=== PATIENT | female | born 1950 | race Caucasian/White ===

== ENCOUNTER 2024-11-24 00:29 | Inpatient (IN) | payer MEDICARE, OTHER, SELFPAY ==
[2024-11-23 20:28] VITALS: BP 173/90
[2024-11-23 20:49] LABS: Hematocrit 33.4 % (37.0-47.0); Hemoglobin 11.1 g/dL (12.0-16.0); Mean Corp Hgb Conc. 33.2 g/dL (33.0-37.0); Mean Corpuscular Volume 90.3 fL (81.0-99.0); Nucleated Red Blood Cells % 0 %; Platelet Count 253 10^3/uL (130-400); Red Cell Dist. Width 15.1 % (11.5-14.5)
[2024-11-23 21:07] LABS: ALT (SGPT) 25 U/L (0-35); AST (SGOT) 29 U/L (14-36); Albumin 5.2 g/dl (3.5-5.0); Alkaline Phosphatase 55 U/L (38-126); Blood Urea Nitrogen 26 mg/dl (7-17); Calcium 10.5 mg/dl (8.4-10.2); Carbon Dioxide 25 mmol/L (22-30); Chloride 106 mmol/L (98-107); Glucose 104 mg/dl (70-99); Lipase 62 U/L (23-300); Potassium 4.9 mmol/L (3.5-5.1); Sodium 140 mmol/L (135-145); Total Protein 8.2 g/dl (6.3-8.2); eGFR > 60.00
--- NOTE | 2024-11-23 21:14 | ED.GENMED ---
History of Present Illness
General
Chief Complaint: Abdominal Pain
Source: patient
Exam Limitations: none
Time Seen by Provider: 11/23/24 21:06
Nursing documentation reviewed up to this point in time: agreed with
History of Present Illness
History of Present Illness:
Note:
CHIEF COMPLAINT(S)
Pelvic pain.
HISTORY OF PRESENT ILLNESS
The patient is a 74-year-old female with pmh of htn, hlp, diabetes, who presented with a complaint of pelvic pain that began at approximately 6:00 PM. The pain is described as sharp and expanding, with no previous episodes reported. The patient also
experienced vomiting but denied any fever at home. The pain does not radiate to the upper abdomen and worsens significantly with movement, causing widespread discomfort. No urinary discomfort is reported. Upon examination, there is a noticeable
swelling described as 'almost like an apple' in the pelvic area, which is very firm to touch. The patient has not experienced similar pain before and does not report any recent surgeries in the abdomen. There was an episode of vomiting at home.
PHYSICAL EXAM
General: Patient appears in discomfort.
Skin: Warm, dry.
Head: Normocephalic, atraumatic.
Neck: Supple, trachea midline.
Eye, Ears, Nose, Mouth, and Throat: Oral mucosa moist.
Cardiovascular: Normal peripheral perfusion, no edema.
Respiratory: Respirations are non-labored.
Gastrointestinal: Notable for significant pelvic tenderness and firmness in the right, resembling a mass. Diffuse abdominal tenderness with guarding.
PLAN
- Administer pain medication via intravenous route.
- Order a computed tomography (CT) scan of the pelvis to further investigate the nature and cause of the mass.
- Initiate intravenous access for medication administration.
- Reassess the patient after medication administration to evaluate pain relief and further symptomatology.
DIFFERENTIAL DIAGNOSIS
The Differential Diagnosis includes, in no particular order and is not limited to:
1. Ovarian cyst
2. Pelvic abscess
3. Diverticulitis
4. Hernia
5. Malignancy
6. Constipation with fecal impaction
7. Bowel obstruction
8. Urinary retention
9. Bladder mass or tumor
10. Gastrointestinal perforation.
CHART REVIEW
Reviewed discharge summary from 08/03/22
MDM/DISPOSITION
The patient is a 74-year-old female with pmh of htn, hlp, diabetes, who presented with a complaint of pelvic pain that began at approximately 6:00 PM. The pain is described as sharp and expanding, with no previous episodes reported. CT scan reveals
inguinal hernia with small bowel obstruction. Hernia was reduced in the ER. Patient clinically improving. Will admit for serial abdominal exams and surgical consultation. ED attending aware.
Past History
Past History
ED Past Medical History: HTN, Hypercholesterolemia, IDDM and Hypothyroidism
ED Past Surgical History: Gynecological (Hysterectomy), Orthopedic (Left total knee replacement) and Other (Thyroidectomy)
Social History
Tobacco: Non-smoker
Alcohol: None
Living: with family
Employment: Retired
Family History
Family History: Other (Noncontributory)
Review of Systems
Review of Systems
All Other Systems: ROS reviewed and negative except as documented in HPI and ROS
Phy Exam
Physical Exam
Physical Exam:
see hpi
Course
Orders/Labs/Results
Orders:
Orders
11/23/24 20:42
Complete Blood Count/With Diff Urgent
Comprehensive Metabolic Panel Urgent
Lipase Urgent
11/23/24 21:11
Cardiac Monitoring- Treatment ONCE
0.9% Sodium Chloride 250 ml [Nss] 250 ml IV BOLUS
Morphine Sulfate 4 mg IV NOW STA
Ondansetron Injectable [Zofran] 4 mg IV NOW STA
11/23/24 21:12
CT Abd/pelvis W Iv Cont Urgent
Comment:
Reason For Exam: diffuse abdominal pain, pelvic pain
11/23/24 21:44
Urinalysis Reflex To Culture Urgent
Date Specimen was Collected: 11/23/24
Time Specimen was Collected: 21:43
Urine Microscopic Reflex Cult Urgent
11/23/24 21:50
Acetaminophen [Tylenol] 1,000 mg PO NOW STA
11/23/24 23:26
Lactic Acid Urgent
11/24/24 00:17
Admit/Transfer Patient As Directed
Co-Sign Provider:
Level of Care: Inpatient admission
Assign to:: Medical/Surgical
Physician / Group: Mariusz
Diagnosis: Inguinal Hernia, SBO
Reason for Hospitalization: Inguinal Hernia, SBO
Expected length of stay greater than two midnights?: Yes
ELOS- Estimated Length of Stay in days: 2
I certify the patient meets the requirements for IP care: Yes
PRN Pain Medication Management As Directed
May give lesser potent ordered pain med per pt: Yes
preference::
Protocol:: Medication orders for pain may be administered in a
manner that supports deferring to patient preference
when the pt is:
- Requesting an ordered lesser potent pain medication.
Least to most potent pain medications are defined
as: acetaminophen < NSAID < tramadol < opioids
(morphine, oxycodone, hydromorphone).
- Requesting a lesser dose of the same medication IF
ORDERED.
- Requesting a less intrusive route of administration
if both routes are prescribed by the provider (PO <
IV).
11/24/24 00:18
Code Status As Directed
Resuscitation Status: Full Code
11/24/24 01:58
0.9% Sodium Chloride 1000 ml [Nss] 1,000 ml IV 80 mls/hr
Acetaminophen [Tylenol] 650 mg PO Q4HPRN PRN
Dextrose 50%-Water [Dextrose 50% Syringe] 12.5 grams IV [id number] PRN
Glucagon [GlucaGen] 1 mg IM PRN PRN
HYDROmorphone [Dilaudid] 0.5 mg IV Q4HPRN PRN
Ondansetron Injectable [Zofran] 4 mg IV Q6HPRN PRN
11/24/24 01:58
SURGICAL CONSULT Routine
Consulting Provider: Gonzalo Ding
Was physician already notified: Yes
Reason for consult: Inguinal Hernia, SBO
Activity As Directed
Activity Level: Ambulate
With Assistance
Bedside Glucose Monitoring As Directed
Frequency: AC&HS
Additional Instructions:: Change to q6h if pt on TPN, tube feeding or not eating
I/O [Intake/ Output] As Directed
Frequency: Per unit guidelines
Pneumatic Compression Sleeves As Directed
Type: Knee high
Vital Signs As Directed
Frequency: Per unit guidelines
Oxygen Therapy [O2 Therapy] [RESP] Routine
Titrate/Wean O2 to maintain O2 sat greater than (%): 94
DX Deep Vein Thrombosis Video Routine
11/24/24 Breakfast
NPO
Allow oral meds: Yes
Allow clear liquids: Sips of Clears
Levothyroxine [Synthroid] 125 mcg PO DAILY @ 0600
11/24/24 06:55
Complete Blood Count/No Diff IN AM
Glycohemoglobin (HgbA1c) IN AM
11/24/24 07:30
Insulin Aspart Corrective Low [Novolog Flexpen-Low Resistance] See Protocol SC AC
11/24/24 08:00
Amlodipine [Norvasc] 10 mg PO DAILY
Aspirin Low Dose EC [Aspir Low (Enteric Coated)] 81 mg PO DAILY
Atorvastatin [Lipitor] 40 mg PO DAILY
Dapagliflozin [Farxiga] 10 mg PO DAILY
Labetalol [Trandate] 200 mg PO BID
Pantoprazole [Protonix IV] 40 mg IV DAILY
Valsartan [Diovan] 320 mg PO DAILY
11/24/24 18:00
insulin glargine 10 unit SC QPM
Abnormal Lab Results
11/23/24 11/23/24
20:42 21:44
RBC 3.70 L 10^6/uL
(4.20-5.40)
Hgb 11.1 L g/dL
(12.0-16.0)
Hct 33.4 L %
(37.0-47.0)
RDW 15.1 H %
(11.5-14.5)
MPV 10.8 H fL
(7.4-10.4)
BUN 26 H mg/dl
(7-17)
Glucose 104 H mg/dl
(70-99)
Calcium 10.5 H mg/dl
(8.4-10.2)
Albumin 5.2 H g/dl
(3.5-5.0)
Urine Glucose 4+ A
(Negative)
Urine Albumin (Reflex) 1+ A
(Neg - Trace)
11/23/24 20:42
11/23/24 20:42
Vital Signs
Initial and Last Documented VS:
Initial Vital Signs
Temp Pulse Resp BP Pulse Ox
98.1 F 65 18 173/90 99
11/23/24 20:28 11/23/24 20:28 11/23/24 20:28 11/23/24 20:28 11/23/24 20:28
Last Documented Vital Signs
Temp Pulse Resp BP Pulse Ox
98.7 F 83 16 144/75 97
11/24/24 07:30 11/24/24 09:17 11/24/24 07:30 11/24/24 09:17 11/24/24 10:53
*Pulse Oximetry
SaO2: 99
Oxygen Mode of Delivery: Room air
Patient hypoxic: no
*Critical Care Note
Total Time (30-74mins, 75-104mins- exclusive of procedures): Not Applicable
ED Attending Note
-
Portions of this chart may have been created with voice recognition software.� Occasional wrong word or��sound alike� substitutions may have occurred due to the inherent limitations of voice recognition software.
Discharge Plan
Departure
Patient Disposition: Admit
Date of Disposition: 11/23/24
Time of Disposition: 23:37
Admit to: Med/Surg
Presentation/result/management discussed w/ accepting MD/DO: Hospitalist
Patient with high blood pressure during this ER visit?: Yes
Condition: Fair
Discharge Problem:
Small bowel obstruction, Right inguinal hernia
Interventions
Interventions:
*Risk Screen - Suicide Last Done: 11/24/24 02:22
*General Assessment Last Done: 11/23/24 21:38
*Neglect/Abuse Screening Last Done: 11/23/24 20:28
*ED- Fall Risk Assessment Last Done: 11/23/24 21:38
*ED COVID-19 Vaccine History Last Done: 11/23/24 21:38
*Nursing Disposition Last Done: 11/24/24 01:37
TW-Cmluar-Zflbvrrtpo Assessment Last Done: 11/23/24 21:38
Discharge Date and Time
Discharge Date/Time: 11/24/24 01:50
[2024-11-23] MEDS: NSS 250 IV (21:25)
[2024-11-23] MEDS: MORPHINE SULFATE 4 MG IV (21:27)
[2024-11-23] MEDS: ZOFRAN 4 MG IV (21:27)
[2024-11-23 21:30] VITALS: BMI 32.0
[2024-11-23 21:37] VITALS: BP 170/84
[2024-11-23 21:51] LABS: Urine Character Clear (Clear)
[2024-11-23] MEDS: TYLENOL 1000 MG PO (21:57)
[2024-11-23 22:00] VITALS: BP 150/73
[2024-11-23 22:02] LABS: Urine Red Blood Cell None Seen /HPF (0-2); Urine White Cell 0-2 /HPF (0-5)
[2024-11-23 23:29] VITALS: BP 135/68
[2024-11-24] VITALS (15 sets, daily range): BP systolic 110–151; BP diastolic 33–79; BMI 33.2
--- NOTE | 2024-11-24 00:21 | HPS.HSE ---
Family Physician
-
Family Physician: Stephan Weston
Chief Complaint
-
Abd Pain
History of Present Illness
Patient is a 74y F with PMH significant for hypertension, DM-II and hypothyroidism who presents to ED complaining of abdominal pain with N/V. History obtained from patient and family with daughter serving as site interpreter as well. Patient was
feeling very well until this evening around 6 PM. She developed RLQ / R groin pain at that time accompanied by a large / painful 'lump' in the R groin. Her pain steadily increased over time and she developed nausea with a few episodes of
non-bloody emesis. With persistent symptoms patient presented to the ED for further evaluation and treatment.
In the ED, patient was noted to have R inguinal hernia on CT with associated SBO. This was successfully reduced following CT imaging and patient reports significant improvement in her symptoms.
She denies any prior / similar episodes.
Medical History
Past Medical History
Past Medical History: Reports Other
Additional Past Medical History:
DM-II
Thyroid Cancer s/p Thyroidectomy
Hypothyroidism
Hypertension
Past Surgical History: Reports Other
Additional Past Surgical History:
SJ
Left TKA
Thyroidectomy
Social History
Tobacco: Non-smoker
Alcohol: None
Drug: None
Living: With Family
Family History
Family History: Not pertinent
Allergies / Home Medications
Allergies reflects when Allergies were last updated in [facility].
Home Medications with original date entered in [facility]
Allergy/Medication List:
Allergies
Allergy/AdvReac Type Severity Reaction Status Date / Time
No Known Allergies Allergy Verified 07/23/22 21:51
Home Medications
aspirin 81 mg capsule 81 mg PO DAILY Blood clot prevention/tx 07/23/22
atorvastatin 40 mg tablet 40 mg PO DAILY High cholesterol 07/23/22
insulin glargine 100 unit/mL subcutaneous cartridge 16 unit SC QPM Diabetes 07/23/22
labetalol 200 mg tablet 200 mg PO BID Blood pressure 07/23/22
valsartan 320 mg tablet 320 mg PO DAILY Blood pressure 07/23/22
metformin 1,000 mg tablet 1,000 mg PO BID Diabetes #0 tabs 08/03/22
amlodipine 10 mg tablet 10 mg PO DAILY 11/24/24
clonidine HCl 0.1 mg tablet 0.1 mg PO DAILYPRN PRN High BP 11/24/24
cyanocobalamin (vitamin B-12) 1,000 mcg tablet 1,000 mcg PO BID 11/24/24
empagliflozin 25 mg tablet (Jardiance) 25 mg PO DAILY 11/24/24
insulin aspart U-100 100 unit/mL (3 mL) subcutaneous pen 1 sliding scale dose SC AC 11/24/24
levothyroxine 125 mcg tablet 125 mcg PO DAILY 11/24/24
Review of Systems
-
History Source: Patient and Family
A 12 point ROS was completed and negative except as noted: Yes
Constitutional: Denies Fever or Chills
Respiratory: Denies Cough or Trouble Breathing
Cardiac: Denies Chest Pain or Palpitations
Abdomen/GI: Reports Abdominal Pain, Nausea and Vomiting; Denies Diarrhea, Constipated, Bloody Stools or Black Stools
: Denies Dysuria or Frequency
Musculoskeletal: Denies Joint Pain or Edema
Neurological: Denies Dizzy or Headache
Physical Exam
Vital Signs
Vital Signs
Temp Pulse Resp BP Pulse Ox
98.1 F 68 18 170/84 97
11/23/24 20:28 11/23/24 21:37 11/23/24 21:37 11/23/24 21:37 11/23/24 21:37
Physical Exam
General: Other (74y F in no acute distress.)
HEENT: Moist mucous membranes and PERRLA
Respiratory: Clear; No Wheezes, Rales or Rhonchi
Cardiac: S1/S2 and Regular Rhythm; No Murmur
GI: Soft, Non Tender, Non Distended, Normal Bowel Sounds and Other (No bulging hernia appreciable at present. Scattered ecchymoses from insulin injections.)
Musculoskeletal: No Clubbing, No Cyanosis and No Edema
Neuro: AO x 3
Laboratory Results
-
11/23/24 20:42
11/23/24 20:42
Laboratory Results
Lactic Acid 1.3 mmol/L (0.7-2.0) 11/23/24 23:26
Total Bilirubin 0.4 mg/dl (0.2-1.3) 11/23/24 20:42
AST 29 U/L (14-36) 11/23/24 20:42
ALT 25 U/L (0-35) 11/23/24 20:42
Alkaline Phosphatase 55 U/L (38-126) 11/23/24 20:42
Lipase 62 U/L (23-300) 11/23/24 20:42
Impression/Plan
-
A/P: Patient is a 74y F with PMH significant for hypertension and DM-II who presents to ED complaning of abdominal pain and N/V.
Inguinal Hernia
SBO secondary to the above
- Admit for further evaluation and treatment.
- Hernia reduced at the bedside with improvement in symptoms.
- Follow for any new / recurrent symptoms.
- Pain control, antiemetics, IVFs, etc.
- Surgery evaluation in the AM for possible repair.
Benign Hypertension
- Stable on multidrug regimen.
- Continue usual medications with holding parameters.
DM-II
- Stable. Continue basal insulin at decreased dose while NPO.
- SSI coverage as needed.
- Update A1C.
Hypothyroidism
History of Thyroid Cancer
- Stable. Continue current T4 supplementation.
DVT Prophylaxis: SCDs
Code Status: Full
[2024-11-24] MEDS: NSS 1000 IV ×2 (02:41→17:56)
[2024-11-24] MEDS: SYNTHROID 125 MCG PO (05:59)
[2024-11-24 07:34] LABS: Hematocrit 31.8 % (37.0-47.0); Hemoglobin 10.5 g/dL (12.0-16.0); Mean Corp Hgb Conc. 33.0 g/dL (33.0-37.0); Mean Corpuscular Volume 89.6 fL (81.0-99.0); Platelet Count 231 10^3/uL (130-400); Red Cell Dist. Width 15.1 % (11.5-14.5)
--- NOTE | 2024-11-24 07:43 | W.SUR.PREOP ---
Pre-Operative Surgical Note
-
I have examined this patient prior to the performance of the scheduled procedure.
The patient's condition is unchanged from the time of the current History and
Physical and the patient is able to undergo the scheduled procedure.
[2024-11-24] MEDS: DIOVAN 320 MG PO (09:01)
[2024-11-24] MEDS: TRANDATE 200 MG PO ×2 (09:01→21:05)
[2024-11-24] MEDS: FARXIGA 10 MG PO (09:01)
[2024-11-24] MEDS: ASPIR LOW (ENTERIC COATED) 81 MG PO (09:02)
[2024-11-24] MEDS: LIPITOR 40 MG PO (09:02)
[2024-11-24 09:03] LABS: Glycohemoglobin (HgbA1c) 7.1 % (4.0-5.6)
[2024-11-24] MEDS: NSS (PRESERVATIVE FREE) 10 ML IV (09:03)
[2024-11-24] MEDS: PROTONIX IV 40 MG IV (09:03)
[2024-11-24 09:11] LABS: Glucose - Point of Care 145 mg/dl (70-99)
[2024-11-24] MEDS: NOVOLOG FLEXPEN-LOW RESISTANCE SC ×2 (09:15→11:30)
[2024-11-24] MEDS: NORVASC 10 MG PO (09:17)
[2024-11-24 10:09] LABS: Blood Urea Nitrogen 20 mg/dl (7-17); Calcium 9.0 mg/dl (8.4-10.2); Carbon Dioxide 25 mmol/L (22-30); Chloride 106 mmol/L (98-107); Estimated Creatinine Clearance 69 ml/min; Glucose 144 mg/dl (70-99); Potassium 4.7 mmol/L (3.5-5.1); Sodium 139 mmol/L (135-145); eGFR > 60.00
--- NOTE | 2024-11-24 10:20 | CON.GS ---
Addendum entered and electronically signed by Jude Bailey MD 11/24/24 12:35:
I saw and examined the patient independently.
The Financial Services Representative's note was reviewed and I agree with the note, assessment and plan except where noted below.
Comment: This is a 74-year-old female who presented last night with abdominal pain nausea and vomiting found to have a incarcerated right inguinal hernia on CT scan which was reduced successfully. She did note similar pain over the past month. She
was counseled on repair today which she obliged.
Will plan for robotic diagnostic laparoscopy followed by a right possible left inguinal hernia repair with mesh.
N.p.o., IV fluids, IV antibiotics ordered on-call to the OR.
Dispo pending clinical course. Possible home today.
Risks/Benefits/Alternatives, expected postoperative course and possible complications (bleeding, infection, injury to surrounding structures, acute/chronic pain) discussed at length. Patient wishes to proceed with surgery. All questions answered.
Consent obtained.
I spent 75 minutes in total for the care of this patient today including direct patient care and counseling, reviewing labs, imaging, coordination of care, as well as documentation.
Original Note:
Consultation
-
Date/Time Consultation Performed: 11/24/24 0830
Medical History
-
Chief Complaint: abdominal pain
History of Present Illness:
Ms Rich is a 74 yo Burkinan speaking female (daughter Anne Marie acting as pt's interpreter for the deaf per her request) with a h/o SJ, DM, thyroid ca with thyroidectomy and htn who presented through the ED with nausea and vomiting with abdominal pain last
night. She was noted to have a right inguinal hernia which was tender that was able to be reduced in the ED. She notes that she has noticed a bulging there with intermittent discomfort for several months and has followed with her PCP but not yet had
surgical evaluation. Over the past few days, she was bloated and constipated and did strain to pass a BM. Around 6pm, she noted increasing pain to her right groin with increased size of the hernia and developed nausea and vomiting causing her to
present to the ED for evaluation. The hernia itself is currently soft and reduced with no tenderness. She denies active nausea and vomiting.
Past Medical History
Past Medical History: Cancer (thyroid s/p surgery) and NIDDM
Past Surgical History: Gynecological (SJ ), Orthopedic (left TKA) and Other (thyroidectomy)
Social History
Tobacco: Non-Smoker
Alcohol: None
Family History
Family History: Reviewed & Not Pertinent
Allergies / Home Medications
Allergy/AdvReac Type Severity Reaction Status Date / Time
No Known Allergies Allergy Verified 07/23/22 21:51
�Medication �Instructions �Recorded �Confirmed �Type
aspirin 81 mg capsule 81 mg PO DAILY Blood clot 07/23/22 11/24/24 History
prevention/tx
atorvastatin 40 mg tablet 40 mg PO DAILY High cholesterol 07/23/22 11/24/24 History
insulin glargine 100 unit/mL 16 unit SC QPM Diabetes 07/23/22 11/24/24 History
subcutaneous cartridge
labetalol 200 mg tablet 200 mg PO BID Blood pressure 07/23/22 11/24/24 History
valsartan 320 mg tablet 320 mg PO DAILY Blood pressure 07/23/22 11/24/24 History
metformin 1,000 mg tablet 1,000 mg PO BID Diabetes #0 tabs 08/03/22 11/24/24 Rx
amlodipine 10 mg tablet 10 mg PO DAILY 11/24/24 11/24/24 History
clonidine HCl 0.1 mg tablet 0.1 mg PO DAILYPRN PRN High BP 11/24/24 11/24/24 History
cyanocobalamin (vitamin B-12) 1,000 mcg PO BID 11/24/24 11/24/24 History
1,000 mcg tablet
empagliflozin 25 mg tablet 25 mg PO DAILY 11/24/24 11/24/24 History
(Jardiance)
insulin aspart U-100 100 unit/mL 1 sliding scale dose SC AC 11/24/24 11/24/24 History
(3 mL) subcutaneous pen
levothyroxine 125 mcg tablet 125 mcg PO DAILY 11/24/24 11/24/24 History
Review of Systems
-
History Source: Patient and Family
All other systems: Negative unless noted
A 10 point review of systems was completed, and was negative except as per HPI.
Physical Exam
Vital Signs
Temp Pulse Resp BP Pulse Ox
98.7 F 83 16 144/75 97
11/24/24 07:30 11/24/24 09:17 11/24/24 07:30 11/24/24 09:17 11/24/24 07:30
11/23/24 11/24/24 11/25/24
06:59 06:59 06:59
Actual Weight 82.355 kg
Body Mass Index (BMI) 33.2
Lab Results
11/24/24 06:55
11/24/24 09:40
WBC 6.8 10^3/uL (4.8-10.8) 11/24/24 06:55
Hgb 10.5 g/dL (12.0-16.0) L 11/24/24 06:55
Hct 31.8 % (37.0-47.0) L 11/24/24 06:55
Plt Count 231 10^3/uL (130-400) 11/24/24 06:55
Abs Immat Gran (auto) 0.0 10^3/uL (0-0.05) 11/23/24 20:42
Neutrophils % 62.8 % (42.2-75.2) 11/23/24 20:42
Physical Exam
General: Well Developed and Well Nourished
HEENT: Moist Mucous Membranes
Respiratory: Accessory Resp Muscle Use
GI: Soft, Non Tender and Non Distended
Genito-urinary: Inguinal Hernia (right side: soft/reduced)
Skin: Warm and Dry
Neuro: Awake, Alert and AO x 3
Psych: Calm
Data Reviewed
-
CT Scan: Image Personally Visualized and interpreted, Report Reviewed by me, Discussed with Physician, Discussed with Patient and Discussed with Family
Labs: Labs Reviewed by me, Discussed with Physician, Discussed with Patient and Discussed with Family
Old Records: Reviewed
Assessment / Plan
-
74 yo female h/o SJ, DM, thyroid ca with thyroidectomy and htn who presented through the ED with nausea and vomiting with abdominal pain last night. She was noted to have a right inguinal hernia which was tender that was able to be reduced in the
ED. CT imaging reviewed from the ED prior to reduction with right inguinal hernia noted (indirect) containing small bowel with edema present. Incidental findings of a stable left adrenal gland mass. Tachycardia last night, suspect secondary to
pain. VSS, afebrile. No leukocytosis. Pain currently resolved.
Plan:
Keep NPO
Will plan robotic inguinal hernia repair today
Check preop EKG
ABX neurosurgeon to OR
SCDs perioperatively
[2024-11-24 10:24] LABS: Glucose - Point of Care 142 mg/dl (70-99)
--- NOTE | 2024-11-24 10:58 | PTCARENOTE ---
Received patient this am AAOx3. Pt's primary language is Zambian. Pt's daughter Anne Marie translates as per patient an family choice. Pt NPO for OR. Pt given am medications with a sip of water. Pt offered no complaints. Made patient comfortable. Cont
to assess patient status. Report given to OR an patient sent at 09:40.
--- NOTE | 2024-11-24 11:20 | W.PN.UPDATE ---
Update Note
Progress Note Update
Seen and examined independent of overnight physician
Daughter over the phone assisting with translation
Patient currently denies any abdominal or groin pain. Denies any nausea or vomiting. Denies any chest pain at rest or exertion no shortness of breath.
HEENT: Moist mucous membranes
Respiratory: Clear; No Wheezes, Rales or Rhonchi
Cardiac: S1/S2 and Regular Rhythm; No Murmur
GI: Soft, Non Tender, Non Distended, Normal Bowel Sounds and Other (No bulging hernia appreciable at present. Scattered ecchymoses from insulin injections.)
Musculoskeletal: No Clubbing, No Cyanosis and No Edema
Neuro: AO x 3
A/P: Patient is a 74y F with PMH significant for hypertension and DM-II who presents to ED complaning of abdominal pain and N/V.
Inguinal Hernia
SBO secondary to the above
- Hernia reduced at the bedside in the ER with improvement in symptoms.
- Follow for any new / recurrent symptoms.
- Pain control, antiemetics, IVFs, etc.
- Preop EKG noted. Normal sinus rhythm. Ventricular rate of 79. QTc of 458. No previous EKG available for comparison.
- General Surgery evaluated the patient with plan for right inguinal hernia repair later today
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
-stable dating back to CT examination of March 10, 2022.
Benign Hypertension
- Stable on multidrug regimen. BP 144/75
- Continue usual medications with holding parameters.
DM-II
- Stable. Continue basal insulin at decreased dose while NPO.
- SSI coverage as needed.
- Update A1C.
Hypothyroidism
History of Thyroid Cancer
- Stable. Continue current T4 supplementation.
DVT Prophylaxis: SCDs
Code Status: Full
Discussed with patient daughter over the phone in details
--- NOTE | 2024-11-24 12:36 | W.IMMPOSTOP ---
Surgical Immed Post Op Note
-
Primary Surgeon: Jude Bailey MD
Assisting Surgeon: None
Pre-op Diagnosis: Incarcerated right inguinal hernia
Post-op Diagnosis: Incarcerated right inguinal hernia, left inguinal hernia
Procedure Performed:
1. Robotic incarcerated right inguinal hernia repair with mesh.
2. Robotic left inguinal hernia repair with mesh.
3. Lysis of adhesions, diagnostic laparoscopy (less than 30 minutes)
Anesthesia Type: General
Specimen / Cultures: None
Estimated Blood Loss: 11 cc
Complications: None
Operative Findings: The patient was noted to have bilateral inguinal hernias. The bowel was run and a knuckle of hemorrhagic bowel was identified but noted to be completely viable and intact and so no bowel resection was performed. There was a
significant mount of fusions in the midline which were lysed with sharp and electrocautery dissection. This all took less than 30 minutes. We then performed a bilateral inguinal hernia repairs in the preperitoneal space. She had bilateral
indirect inguinal defects, no direct or femoral components. She also had bilateral femoral hernias which were reduced but not resected. After achieving the critical view of the MPO bilaterally, the spaces were reinforced with large Bard 3D max
uncoated polypropylene mid weight mesh. An Angiocath was used to evacuate the pocket upon closure. 1 g of TXA was also given due to the patient's ooziness during the case likely secondary to her aspirin use.
POST OP PLAN:
Imaging: None
Labs: Routine AM
Diet: Advance to Regular as tolerated
Analgesia: Tylenol 650mg q6 Thelma, Dilaudid 0.5mg q2h PRN
Neuro/vascular checks: Per unit protocol
AC/AP: Hold Therapeutic AC, Ok for DVT PPx
Activity: Ad Lianna
Wound/Incisions/Drains: Routine
Abx: None
Dispo: RNF, potential discharge home today.
[2024-11-24 13:00] LABS: Glucose - Point of Care 191 mg/dl (70-99)
--- NOTE | 2024-11-24 15:43 | CM ---
Placed a call to patient's daughter to obtain information for assessment. Patient's daughter stated that patient lives with her, her son in law and grandchild in a two story house with two steps to enter. Her daughter described her as independent
with her ADLs, personal care, bathing and dressing. She can cook, clean, do steamer operator and laundry. She has old DME from a [employer] but has not used any equipment in years. She has never had VN. She has not been to a SNF.
Patient has a prescription plan and uses, [facility] in [place] for all of her medications.
Her PCP is, Stephan Salinas.
Patient's daughter stated that she feels that patient will be able to return home when stable for discharge.
Plan: Case management will continue to follow and assist with discharge planning. Home, will watch for needs.
[2024-11-24 16:47] LABS: Glucose - Point of Care 192 mg/dl (70-99)
--- NOTE | 2024-11-24 16:47 | PTCARENOTE ---
Received patient from PACU at 1510. Pt AAOx3. Pt primary language is Serbian. Pt's family translates by choice. HRR, + PP, SCD's intact, Lungs with diminished BS. O2 2L via nasal cannula. Pt OOB to Bathroom with assistance x1. Abdominal lap sites.
SOCIAL SERVICES with surgical glue. No drainage noted. Pt offered no complaints. Made patient comfortable. Cont to assess patient status.
[2024-11-24 16:54] LABS: Glucose - Point of Care 174 mg/dl (70-99)
[2024-11-24] MEDS: NOVOLOG FLEXPEN-LOW RESISTANCE 1 UNITS SC (17:55)
[2024-11-24] MEDS: LANTUS 0.1 UNITS SC (17:56)
[2024-11-24 21:07] LABS: Glucose - Point of Care 232 mg/dl (70-99)
[2024-11-25] VITALS (7 sets, daily range): BP systolic 103–165; BP diastolic 51–83
[2024-11-25] MEDS: SYNTHROID 125 MCG PO (05:23)
[2024-11-25] MEDS: NSS 1000 IV (06:04)
[2024-11-25 07:55] LABS: Hematocrit 31.2 % (37.0-47.0); Hemoglobin 9.9 g/dL (12.0-16.0); Mean Corp Hgb Conc. 31.7 g/dL (33.0-37.0); Mean Corpuscular Volume 94.3 fL (81.0-99.0); Nucleated Red Blood Cells % 0 %; Platelet Count 235 10^3/uL (130-400); Red Cell Dist. Width 15.8 % (11.5-14.5)
[2024-11-25 08:12] LABS: Glucose - Point of Care 229 mg/dl (70-99)
--- NOTE | 2024-11-25 08:33 | W.PN.GS2 ---
Today's Communication / Plan
-
Dispo planning
Assessment / Plan
-
This is a 74-year-old Argentine-speaking female who presented with incarcerated right inguinal hernia status post robotic incarcerated right inguinal hernia repair with mesh as well as a left inguinal hernia repair with mesh. Overall doing well,
expected postoperative course.
Okay for DC from the surgery perspective.
No narcotics needed on discharge, Tylenol and Motrin should be enough to cover her pain.
Patient to follow-up with me in 2 to 3 weeks, discharge instructions placed.
Time Spent
Total Time Spent with Patient (in minutes): 20
Subjective Data
-
Date of Service: November 25, 2024
Interval Events:
No acute events overnight. Slept well. Pain Controlled. Denies Nausea/Vomiting. Tolerating diet. 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
Objective Data
-
Intake and Output
11/24/24 11/25/24 11/26/24
06:59 06:59 06:59
Intake Total 1435 / 1435
Output Total 360 / 360
Balance 1075 / 1075
Intake:
Oral fluids 720 / 720
IV fluids (Total) 715 / 715
normosol 75 / 75
Output:
Urine, Voided 360 / 360
Other:
Number of approximated MODERATE 1
amounts of urine
Vital Signs
Temp Pulse Resp BP Pulse Ox
98.7 F 84 16 106/57 95
11/25/24 07:10 11/25/24 07:10 11/25/24 07:10 11/25/24 07:10 11/25/24 07:10
Lab Results
11/25/24 06:47
Calcium 9.0 mg/dl (8.4-10.2) D 11/24/24 09:40
Total Bilirubin 0.4 mg/dl (0.2-1.3) 11/23/24 20:42
AST 29 U/L (14-36) 11/23/24 20:42
ALT 25 U/L (0-35) 11/23/24 20:42
Alkaline Phosphatase 55 U/L (38-126) 11/23/24 20:42
Total Protein 8.2 g/dl (6.3-8.2) 11/23/24 20:42
Albumin 5.2 g/dl (3.5-5.0) H 11/23/24 20:42
Physical Exam
-
GENERAL/NEURO: Awake, Alert, no distress
CHEST: Unlabored breathing on RA
ABDOMEN: Soft, Non-Tender, Non-Distended, incisions clean dry and intact.
Patient has a mahan catheter: No
Patient has a central line: No
[2024-11-25 08:42] LABS: Blood Urea Nitrogen 25 mg/dl (7-17); Calcium 8.7 mg/dl (8.4-10.2); Carbon Dioxide 13 mmol/L (22-30); Chloride 108 mmol/L (98-107); Estimated Creatinine Clearance 54 ml/min; Glucose 222 mg/dl (70-99); Potassium 5.1 mmol/L (3.5-5.1); Sodium 138 mmol/L (135-145); eGFR > 60.00
[2024-11-25] MEDS: ASPIR LOW (ENTERIC COATED) 81 MG PO (08:48)
[2024-11-25] MEDS: LIPITOR 40 MG PO (08:48)
[2024-11-25] MEDS: PROTONIX IV 40 MG IV (08:49)
[2024-11-25] MEDS: NSS (PRESERVATIVE FREE) 10 ML IV (08:49)
[2024-11-25] MEDS: FARXIGA 10 MG PO (08:49)
[2024-11-25] MEDS: TRANDATE PO (08:49)
[2024-11-25] MEDS: NORVASC PO (08:50)
[2024-11-25] MEDS: DIOVAN PO (08:50)
[2024-11-25] MEDS: NOVOLOG FLEXPEN-LOW RESISTANCE 2 UNITS SC ×2 (08:53→12:03)
[2024-11-25] MEDS: SODIUM BICARBONATE 1300 MG PO (09:06)
[2024-11-25 11:58] LABS: Glucose - Point of Care 232 mg/dl (70-99)
[2024-11-25] MEDS: TYLENOL 650 MG PO ×2 (11:58→21:56)
--- NOTE | 2024-11-25 12:03 | W.PN.HOSP.TC ---
Addendum entered and electronically signed by Christian Osborne MD 11/25/24 15:52:
Repeat BMP worsening of bicarbonate. Will start bicarbonate infusion.
Original Note:
Today's Communication/Plan
-
po bicarb
pain control
OOB/PT
Assessment / Plan
Assessment / Plan
Gen: NAD, eating breakfast
HEENT: Moist mucous membranes
Respiratory: Clear; non labored respiration
Cardiac: S1/S2 and Regular Rhythm; No Murmur
GI: Soft, Non Tender, Non Distended, Normal Bowel Sounds
Musculoskeletal: No Clubbing, No Cyanosis and No Edema
Neuro: AO x 3
A/P: Patient is a 74y F with PMH significant for hypertension and DM-II who presents to ED complaining of abdominal pain and N/V.
Incarcerated Inguinal Hernia Right side
SBO secondary to the above
- Hernia reduced at the bedside in the ER with improvement in symptoms.
- Pain control, antiemetics,
- status post robotic incarcerated right inguinal hernia repair with mesh as well as a left inguinal hernia repair with mesh.
- post op doing well. OOB/PT eval
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
-stable dating back to CT examination of March 10, 2022.
Benign Hypertension
- Stable on multidrug regimen. BP 119/64
- Continue usual medications with holding parameters.
DM-II
- Stable. Continue basal insulin
- SSI coverage as needed.
- Update A1C at 7.1.
Hypothyroidism
History of Thyroid Cancer
- Stable. Continue current T4 supplementation.
Non anion gap metabolic acidosis
-started po bicarb.
DVT Prophylaxis: SCDs
Code Status: Full
Discussed with patient daughter over the phone in details
PT eval
Anticipated Discharge: Today
Subjective/Interval History
-
Date of Service: November 25, 2024
eating breakfast
some lower abd pain
Objective Data
-
Labs:
Laboratory Results
11/25/24
06:47
WBC 8.6
Hgb 9.9 L
Hct 31.2 L
Plt Count 235
Sodium 138
Potassium 5.1
Chloride 108 H
Carbon Dioxide 13 L*
BUN 25 H
Creatinine 0.9
Glucose 222 H
Calcium 8.7
Vital Signs:
Vital Signs
Temp Pulse Resp BP Pulse Ox
98.6 F 76 16 119/64 97
11/25/24 11:00 11/25/24 11:00 11/25/24 11:00 11/25/24 11:00 11/25/24 11:00
I&O
11/24/24 11/25/24 11/26/24
06:59 06:59 06:59
Intake Total 1435 / 1435
Output Total 360 / 360
Balance 1075 / 1075
[2024-11-25 15:47] LABS: Blood Urea Nitrogen 24 mg/dl (7-17); Calcium 9.2 mg/dl (8.4-10.2); Carbon Dioxide 11 mmol/L (22-30); Chloride 109 mmol/L (98-107); Estimated Creatinine Clearance 54 ml/min; Glucose 302 mg/dl (70-99); Potassium 5.0 mmol/L (3.5-5.1); Sodium 135 mmol/L (135-145); eGFR > 60.00
[2024-11-25] MEDS: SODIUM BICARBONATE 650 MG PO ×2 (16:14→21:56)
[2024-11-25] MEDS: SODIUM BICARBONATE 1150 MEQ IV (16:14)
[2024-11-25 17:04] LABS: Glucose - Point of Care 300 mg/dl (70-99)
[2024-11-25] MEDS: NOVOLOG FLEXPEN-LOW RESISTANCE 4 UNITS SC (17:43)
[2024-11-25] MEDS: LANTUS 0.16 UNITS SC (17:43)
[2024-11-25 21:10] LABS: Glucose - Point of Care 191 mg/dl (70-99)
[2024-11-25] MEDS: TRANDATE 200 MG PO (21:56)
[2024-11-26] MEDS: SYNTHROID 125 MCG PO (05:47)
[2024-11-26] MEDS: SODIUM BICARBONATE 1150 MEQ IV (06:37)
[2024-11-26 07:00] VITALS: BP 145/72
[2024-11-26 07:32] LABS: Glucose - Point of Care 137 mg/dl (70-99)
[2024-11-26 07:45] LABS: Hematocrit 29.5 % (37.0-47.0); Hemoglobin 9.5 g/dL (12.0-16.0); Mean Corp Hgb Conc. 32.2 g/dL (33.0-37.0); Mean Corpuscular Volume 90.8 fL (81.0-99.0); Nucleated Red Blood Cells % 0 %; Platelet Count 214 10^3/uL (130-400); Red Cell Dist. Width 15.6 % (11.5-14.5)
[2024-11-26] MEDS: NOVOLOG FLEXPEN-LOW RESISTANCE SC (07:45)
[2024-11-26 08:24] LABS: Blood Urea Nitrogen 21 mg/dl (7-17); Calcium 8.5 mg/dl (8.4-10.2); Carbon Dioxide 18 mmol/L (22-30); Chloride 108 mmol/L (98-107); Estimated Creatinine Clearance 69 ml/min; Glucose 136 mg/dl (70-99); Potassium 3.9 mmol/L (3.5-5.1); Sodium 137 mmol/L (135-145); eGFR > 60.00
[2024-11-26] MEDS: NORVASC 10 MG PO (08:30)
[2024-11-26] MEDS: TRANDATE 200 MG PO (08:30)
[2024-11-26] MEDS: SODIUM BICARBONATE 650 MG PO (08:30)
[2024-11-26] MEDS: DIOVAN 320 MG PO (08:30)
[2024-11-26] MEDS: FARXIGA 10 MG PO (08:30)
[2024-11-26] MEDS: NSS (PRESERVATIVE FREE) 10 ML IV (08:30)
[2024-11-26] MEDS: LIPITOR 40 MG PO (08:30)
[2024-11-26] MEDS: ASPIR LOW (ENTERIC COATED) 81 MG PO (08:30)
[2024-11-26] MEDS: PROTONIX IV 40 MG IV (08:31)
--- NOTE | 2024-11-26 11:12 | W.PN.HOSP.TC ---
Today's Communication/Plan
-
Home
Outpatient surgery follow-up
Continue p.o. bicarb
Assessment / Plan
Assessment / Plan
Gen: NAD, eating breakfast
HEENT: Moist mucous membranes
Respiratory: Clear; non labored respiration
Cardiac: S1/S2 and Regular Rhythm; No Murmur
GI: Soft, Non Tender, Non Distended, Normal Bowel Sounds, surgical scar noted
Musculoskeletal: No Clubbing, No Cyanosis and No Edema
Neuro: AO x 3
A/P: Patient is a 74y F with PMH significant for hypertension and DM-II who presents to ED complaining of abdominal pain and N/V.
Incarcerated Inguinal Hernia Right side
SBO secondary to the above
- Hernia reduced at the bedside in the ER with improvement in symptoms.
- Pain control, antiemetics,
- status post robotic incarcerated right inguinal hernia repair with mesh as well as a left inguinal hernia repair with mesh.
- post op doing well. OOB/PT eval
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
-stable dating back to CT examination of March 10, 2022.
Benign Hypertension
- Stable on multidrug regimen. BP 119/64
- Continue usual medications with holding parameters.
DM-II
- Stable. Continue basal insulin
- SSI coverage as needed.
- Update A1C at 7.1.
Hypothyroidism
History of Thyroid Cancer
- Stable. Continue current T4 supplementation.
Non anion gap metabolic acidosis
-Status post bicarbonate infusion. Continue with p.o. bicarbonate. Repeat blood work as outpatient.
DVT Prophylaxis: SCDs
Code Status: Full
Discussed with patient daughter over the phone in details
PT eval Home
More than 30 minutes spent in discharge including
Final examination of the patient
Summarizing hospital stay
Instructions for continuing care to all relevant caregivers
Preparation of discharge records, prescriptions, and referral forms
Total time spent (in minutes): 53
Anticipated Discharge: Today
Subjective/Interval History
-
Date of Service: November 26, 2024
some lower abd discomfort
no overnight events
Objective Data
-
Labs:
Laboratory Results
11/26/24
06:45
WBC 7.2
Hgb 9.5 L
Hct 29.5 L
Plt Count 214
Sodium 137
Potassium 3.9
Chloride 108 H
Carbon Dioxide 18 L
BUN 21 H
Creatinine 0.7
Glucose 136 H
Calcium 8.5
Vital Signs:
Vital Signs
Temp Pulse Resp BP Pulse Ox
98.4 F 73 12 145/72 95
11/26/24 07:00 11/26/24 07:00 11/26/24 07:00 11/26/24 07:00 11/26/24 07:00
I&O
11/25/24 11/26/24 11/27/24
06:59 06:59 06:59
Intake Total 1435 / 1435 1919
Output Total 360 / 360
Balance 1075 / 1075 1919
[2024-11-26 11:28] LABS: Glucose - Point of Care 213 mg/dl (70-99)
[2024-11-26] MEDS: NOVOLOG FLEXPEN-LOW RESISTANCE 2 UNITS SC (12:47)
--- NOTE | 2024-11-26 13:27 | W.DCSUMMARY ---
Discharge Summary
Discharge Data
Date of Admission: 11/24/24
Date of Discharge: 11/26/24
-
Pending Results: No
Hospital Course
74y F with PMH significant for hypertension, DM-II and hypothyroidism who presents to ED complaining of abdominal pain with N/V. In the ED, patient was noted to have R inguinal hernia on CT with associated SBO. This was successfully reduced
following CT imaging and patient reports significant improvement in her symptom. Patient was kept NPO. Patient was on IV fluid. Patient was eval by general surgery. Patient underwent to the operating room on 11/24/2024 and underwent bilateral
inguinal hernia with mesh repair, lysis of adhesion. Status post procedure patient said a mild pain. Patient was tolerating diet. Patient was also found to have acidosis status post bicarbonate infusion. Patient was on p.o. bicarbonate.
Acidosis improved patient was eval by physical therapy. Patient case was discussed with patient daughter over the phone throughout hospitalization.
Discharge Plan
-
Patient Disposition: Home (Routine Discharge)
Discharge Diagnosis/Procedures: Incarcerated right inguinal hernia. Robotic bilateral inguinal hernia repair with mesh.
Non anion gap acidosis
Condition: Good
Diet: As tolerated and Diabetic, Carb Controlled
Activity: No strenuous activity
Bathing Restrictions: OK to Shower
Blood Work: BMP in 1 week via primary doctor to assess for acidosis.
CBC in 1 week via primary doctor.
Activity Restrictions/Additional Instructions:
In instructions following Robotic Inguinal Hernia Repair
Please call [phone] if you have any questions or concerns after your surgery.
Wound Care:
Your incisions are covered with skin glue which will come off on its own in 5-10 days.
It is ok to shower the day after your surgery. Do not scrub the incisions, let soap and water wash over them and pat dry.
� Bruising around your incisions is normal.
� Using ice packs will help minimize this swelling.
� No swimming or soaking incisions for 1 week.
� Your stitches will dissolve and do not need to be removed.
Wear compression underwear or briefs, do not wear boxers or loose-fitting underwear.
Urinary retention:
If you are unable to urinate 6-8 hours after your surgery, please call [phone] to discuss further management.
Activity:
No heavy lifting more than 15 pounds for the next 3 weeks, then you may gradually lift heavier objects as tolerated by discomfort. Otherwise activity as tolerated by your comfort level.
Pain Management:
Use Tylenol, ibuprofen and ice packs to treat your pain.
� You may take 650 milligrams of Tylenol (Max 3 grams per day) every 6 hours, and 600 mg of ibuprofen also every 6 hours. (you can alternate them every 3 hours)
� You may use an ice pack to your incision as needed.
� If you still have pain not controlled by these measures, take your prescription pain medication if prescribed.
Medications:
You may resume your home medications.
Bowel Medications:
Prescription pain medication can make you constipated. If you take this medication, also take colace 100 mg twice daily (this is over the counter). If this is not sufficient, you may take Miralax (polyethylene glycol) to help move your bowels.
Diet:
After your procedure, there are no dietary restrictions.
Driving restrictions:
No driving if you are taking prescription pain medication or if you think your normal reaction time and attentiveness has been slowed by your surgery.
Things to Look out for:
Worsening Abdominal pain, redness or drainage from incision
Call Doctor for:
Please call if you notice worsening redness or drainage from incision(s) lasting longer than 5 days after your surgery, any foul-smelling drainage from the incision, pain not controlled by pain medications, persistent nausea and vomiting, or for any
fevers greater than 101.3 F. The number for questions/concerns is [phone]
Follow-up:
A follow-up appointment will be scheduled with your surgeon in 3-4 weeks. Please call prior to your appointment if you have any questions or concerns. [phone]
Referrals:
Stephan Weston MD [Family Provider, Internal Medicine] - in less than 1 week
Jude Bailey MD [Active, Surgical] - in two to three weeks
Referral Note: Follow-up with surgery prior to your trip. Call to make appointment.
Prescriptions:
New
sodium bicarbonate 650 mg Tablet
650 mg PO TID Qty: 30 0RF
Continued
atorvastatin 40 mg Tablet
40 mg PO DAILY
labetalol 200 mg Tablet
200 mg PO BID
valsartan 320 mg Tablet
320 mg PO DAILY
insulin glargine 100 unit/mL Cartridge
16 unit SC QPM
aspirin 81 mg Capsule
81 mg PO DAILY
metformin 1,000 mg Tablet
1,000 mg PO BID Qty: 0 0RF
Rx Instructions:
resume on 08/06/2022
clonidine HCl 0.1 mg Tablet
0.1 mg PO DAILYPRN PRN (Reason: High BP)
cyanocobalamin (vitamin B-12) 1,000 mcg Tablet
1,000 mcg PO BID
amlodipine 10 mg Tablet
10 mg PO DAILY
levothyroxine 125 mcg Tablet
125 mcg PO DAILY
insulin aspart U-100 100 unit/mL (3 mL) insulin pen
1 sliding scale dose SC AC
Rx Instructions:
12 units breakfast, 8 units lunch, 6 units dinner
Jardiance 25 mg Tablet
25 mg PO DAILY
Discharge Orders:
Discharge Patient (As Directed); Ordered 11/26/24
Ordered By: Christian Osborne
Discharge Date and Time
Print Language: Honduran
[2024-11-26 14:02] VITALS: BP 147/86
--- NOTE | 2024-11-28 07:44 | OR.RPT ---
Operative Report
Operative Report
Patient Name: Mima Rich
: 1950
Date of Operation: 11/24/2024
Pre-op Diagnosis: Incarcerated right inguinal hernia
Post-op Diagnosis: Incarcerated right inguinal hernia, left inguinal hernia
Procedure Performed:
1. Robotic incarcerated right inguinal hernia repair with mesh.
2. Robotic left inguinal hernia repair with mesh.
3. Lysis of adhesions, diagnostic laparoscopy (less than 30 minutes)
Surgeon(s):
Dr. Bailey
Studio Camera Operator(s):
ROCIO Morley
Anesthesia: General
Estimated Blood Loss: 11 cc
Urine Output: None
Drains/Lines/Implants: Large 3D Max Bard mid weight uncoated polypropylene mesh x 2
Specimens: None
Indication for surgery: This is a 74-year-old female who presented to our hospital with abdominal pain found to have incarcerated right inguinal hernia, partially reduced in the ED with some symptomatic relief. After discussion risk benefits and
alternatives the patient was consented for surgery.
Operative Findings: The patient was noted to have bilateral inguinal hernias. The bowel was run and a knuckle of hemorrhagic bowel was identified but noted to be completely viable and intact and so no bowel resection was performed. There was a
significant amount of adhesions in the midline which were lysed with sharp and electrocautery dissection. This all took less than 30 minutes. We then performed a bilateral inguinal hernia repairs in the preperitoneal space. She had bilateral
indirect inguinal defects, no direct or femoral components. She also had bilateral femoral hernias which were reduced but not resected. After achieving the critical view of the MPO bilaterally, the spaces were reinforced with large Bard 3D max
uncoated polypropylene mid weight mesh. An Angiocath was used to evacuate the pocket upon closure. 1 g of TXA was also given due to the patient's ooziness during the case likely secondary to her aspirin use.
Details of the operation:
The patient was brought to the Operating Room and placed in the supine position with the arms tucked. IV antibiotics were infused and Venodyne stockings placed. Following uneventful induction of general endotracheal anesthesia, an orogastric tube
was placed. The abdomen was prepped and draped in the usual sterile fashion. The abdomen was entered using a Veress technique which required 1 pass(es), pneumoperitoneum to 15 mmHg was obtained without difficulty. An 8mm trochar was passed through
the abdominal wall roughly 20 cm cephalad to the inguinal canal. We then confirmed that no inadvertent injury was made while passing the trocar or Veress needle. We then placed two additional 8 mm ports in the left upper and right upper quadrants.
We then docked the robot with a Cadier grasper in each hand. The bowel was run and a small section of ileum was identified to be mildly hemorrhagic which is likely the incarcerated piece of bowel. It was completely viable and peristalsing under
direct visualization. There was a significant amount of fusions in the lower midline obscuring our view of the pelvis so we elected to take these adhesions down with the help of the monopolar scissors. This took roughly 30 minutes. We then turned
our attention to repairing the hernias and began on the right side by creating a flap at the level of the ASIS laterally working our way medially to the medial umbilical fold. Staying onto the peritoneum we were able to circumferentially dissect
around the hernia sac and and peel it off of the underlying round ligament which was divided. Medially we identified the midline pubis as well as Donald's ligament and ensured to dissect 2 cm below the pubic rim over the bladder. After exposure of
the entire myopectineal orifice we identified and reduced: A medium sized indirect inguinal hernia, no direct inguinal hernia, no femoral hernia, a medium cord lipoma, which was reduced. I then performed the same dissection on the
contralateral/left side. Here we divided the round ligament which was much more robust and vascular with Weck clips. Again a small indirect inguinal hernia was identified but no direct or femoral component. A small cord lipoma was reduced. After
achieving the critical view of the MPO bilaterally, We fixated a large 3D max mesh with a 2-0 Vicryl stitch at coopers medially and superior laterally, bilaterally. The flap was then closed with a running 2-0 barbed monocryl suture ensuring that
the tail was cut flush with the medial fat pad so that no barbs were exposed, bilaterally. During the closure of the flap an Angiocath was inserted and 20 cc of quarter percent Marcaine was instilled. The area in the flap cavity was then evacuated
of air confirming that the mesh was flush and there were no folds. A small rent in the peritoneum was noted and closed with 2-0 Vicryl. Given the amount of fat and friability of the tissues, 1 g of TXA was given to assist with hemostasis. All
needles and instruments were then removed and the robot was undocked. The abdomen was then desufflated, and pneumoperitoneum evacuated. All skin sites were then closed with 4-0 Monocryl followed by Dermabond. Counts were correct and overall, the
patient tolerated the procedure well and was taken to the Recovery Room postoperatively in stable condition.
I was the attending physician and performed the procedure with assistance of the [facility] above. I was present for all portions of the case, excluding skin closure.
Jude Bailey MD
== END 2024-11-26 15:36 | disposition home or self-care (01) | DRG 351 ==
LOC: 4 EAST ACU 00:29
PROVIDERS: Physician Assistant; ADMITTING PHYSICIAN Hospitalist; ATTENDING PHYSICIAN Hospitalist; EMERGENCY PHYSICIAN Student in an Organized Health Care Education/Training Program; FAMILY PHYSICIAN Internal Medicine; OTHER PHYSICIAN Surgery
PROC: 0YU64JZ Supplement Left Inguinal Region with Synthetic Substitute, Percutaneous Endoscopic Approach (ICD-10-PCS; 2024-11-24)
PROC: 0YU54JZ Supplement Right Inguinal Region with Synthetic Substitute, Percutaneous Endoscopic Approach (ICD-10-PCS; 2024-11-24)
DX: K40.30 Unilateral inguinal hernia, with obstruction, without gangrene, not specified as recurrent (principal); E87.20 Acidosis, unspecified; Z79.84 Long term (current) use of oral hypoglycemic drugs; Z79.890 Hormone replacement therapy; Z79.4 Long term (current) use of insulin; I10 Essential (primary) hypertension; E11.9 Type 2 diabetes mellitus without complications; K40.90 Unilateral inguinal hernia, without obstruction or gangrene, not specified as recurrent; E89.0 Postprocedural hypothyroidism; Z85.850 Personal history of malignant neoplasm of thyroid; Z96.652 Presence of left artificial knee joint; E78.00 Pure hypercholesterolemia, unspecified; K41.20 Bilateral femoral hernia, without obstruction or gangrene, not specified as recurrent; Z79.82 Long term (current) use of aspirin; Z79.899 Other long term (current) drug therapy; Z90.710 Acquired absence of both cervix and uterus; N73.6 Female pelvic peritoneal adhesions (postinfective); D17.9 Benign lipomatous neoplasm, unspecified
CPT/HCPCS: 74177; 80048; 80053; 81003; 81015; 82962; 83036; 83605; 83690; 85025; 85027; 93005; 96361; 96374; 96375; 97162; 99285; C1781; Q9967

== ENCOUNTER → 2025-03-05 15:03 | Outpatient (REF) | payer MEDICARE, OTHER, SELFPAY | LOC: HWWDC 15:03 | PROVIDERS: ATTENDING PHYSICIAN Internal Medicine | DX: Z12.31 Encounter for screening mammogram for malignant neoplasm of breast (principal) | CPT/HCPCS: 77063; 77067 ==

== ENCOUNTER → 2025-03-23 08:46 | Outpatient (REF) | payer MEDICARE, OTHER, SELFPAY | LOC: WDC 08:46 | PROVIDERS: ATTENDING PHYSICIAN Internal Medicine | DX: R92.8 Other abnormal and inconclusive findings on diagnostic imaging of breast (principal) | CPT/HCPCS: 76642 ==